=== PATIENT | male | born 1955 | race African-American/Black ===

== ENCOUNTER 2018-07-30 06:52 | Emergency (ER) | payer OTHER ==
[~2018-07-30] VITALS: Ht 172.7 cm; Wt 95.3 kg
[~2018-07-30 06:52] MED LIST: ALEVE220 MG PO; ALLOPURINOL 30300 M2 PO; APAP500 PO; ARIPIPRAZOLE5 MG PO; BISACODYL SUPP10 MG RECTAL; FLONASE 0.05%50 MCG NASAL; GLUCOSAMINE &1 EAC1 PO; HYDROCODONE-APA1 TA1 PO; LITHIUM CARBON150 MG PO; LITHIUM CARBON300 M3 PO; MIRALAX17 GM PO; NEURONTIN 300300 M1 PO; NUEDEXTA 20-101 EACH PO; VITAMINC500 PO
[2018-07-30 07:39] LABS: ABSOLUTE NEUTROPHILS 6.2 thou/uL (1.4-8.2); BASOPHILS 0.8 % (0.0-2.0); EOSINOPHILS 1.2 % (0.0-3.0); HEMATOCRIT 46.9 % (42.0-52.0); HEMOGLOBIN 14.9 gm/dL (14.0-18.0); LYMPHOCYTES 18.4 % (24.0-44.0); MCH 28.6 pg (26.0-34.0); MCHC 31.7 g/dL (28.0-37.0); MCV 90.1 fL (80.0-100.0); MONOCYTES 6.6 % (1.0-8.0); PLATELET COUNT 203 thou/uL (150-400); RBC 5.21 mil/uL (4.50-6.00); RDW 15.7 % (10.5-14.5); WBC 8.4 thou/uL (4.0-11.0)
[2018-07-30 08:08] LABS: ANION GAP 5 mmol/L (7-16); BUN 21 mg/dL (7-18); CALCIUM 10.6 mg/dL (8.5-10.1); CHLORIDE 102 mmol/L (98-107); CO2 29 mmol/L (21-32); CREATININE 1.8 mg/dL (0.7-1.3); GLUCOSE 100 mg/dL (74-106); POTASSIUM 4.3 mmol/L (3.5-5.1); SODIUM 136 mmol/L (136-145)
[2018-07-30 08:18] LABS: ALBUMIN 3.9 g/dL (3.4-5.0); SGOT 16 U/L (15-37); SGPT 24 U/L (30-65); TOTAL BILIRUBIN 0.6 mg/dL (<0.1-1.0); TOTAL PROTEIN 8.1 g/dL (6.4-8.2); TROPONIN-I <0.06 ng/mL (<0.06)
[2018-07-30 08:23] LABS: URINE BILIRUBIN NEGATIVE (Negative); URINE BLOOD NEGATIVE (Negative); URINE CLARITY CLEAR; URINE COLOR YELLOW; URINE GLUCOSE-RANDOM* NEGATIVE (Negative); URINE KETONES NEGATIVE (Negative); URINE LEUKOCYTES-REFLEX NEGATIVE (Negative); URINE NITRITE-REFLEX NEGATIVE (Negative); URINE PROTEIN (DIPSTICK) NEGATIVE (Negative); URINE UROBILINOGEN 0.2 E.U./dl (0.2-1.0)
[2018-07-30] MEDS ORDERED: ASPERCREME76.5 GM TOP (08:37)
[2018-07-30] MEDS ORDERED: ASPIR 8181 MG PO (08:37)
[2018-07-30] MEDS ORDERED: CLOTRIMAZOLE 1%15 G1 TOP (08:38)
[2018-07-30 08:47] VITALS: BP 121/74
--- NOTE | 2018-07-30 09:27 | EKG ---
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 : 1955 Requested By: Sandy Burleson Order Number: [id number] MD: Sekou Frank Measurements Intervals Cooks Rate: 55 P: 86 HI: 222 QRS: 52 QRSD: 123 T: 31 QT: 452 QTc: 433 Interpretive Statements Sinus rhythm Prolonged HI interval Nonspecific ST and T wave abnormality Compared to ECG 10/28/2015 21:35:21 First degree AV block now present Electronically Signed On 07-30-2018 9:26:49 TELEVISION NEWS REPORTER by Sekou Frank [email or web address] ��������������������������������������������� <ELECTRONICALLY SIGNED> ���������������������������������������� By: Sekou Frank MD, [facility] ��������������������������������������������� 07/30/18 0926 D: [id number] Sekou Frank MD, FACC /EPI
== END 2018-07-30 08:50 | disposition home or self-care (01) ==
LOC: ER 06:52
PROVIDERS: Student in an Organized Health Care Education/Training Program
DX: R25.1 Tremor, unspecified (principal); F03.90 Unspecified dementia, unspecified severity, without behavioral disturbance, psychotic disturbance, mood disturbance, and anxiety; F17.210 Nicotine dependence, cigarettes, uncomplicated; F31.9 Bipolar disorder, unspecified; F25.9 Schizoaffective disorder, unspecified

== ENCOUNTER 2020-12-02 23:28 | Emergency (ER) | payer OTHER ==
[~2020-12-02] VITALS: Ht 175.3 cm; Wt 81.7 kg
[~2020-12-02 23:28] MED LIST changes: +ASPERCREME76.5 GM TOP; +ASPIR 8181 MG PO; +CLOTRIMAZOLE 1%15 G1 TOP
[2020-12-02 23:46] LABS: ABSOLUTE NEUTROPHILS 2.2 thou/uL (1.4-8.2); EOSINOPHILS 2.1 % (0.0-3.0); HEMATOCRIT 46.4 % (42.0-52.0); HEMOGLOBIN 15.2 gm/dL (14.0-18.0); LYMPHOCYTES 38.5 % (24.0-44.0); MCH 28.1 pg (26.0-34.0); MCHC 32.8 g/dL (28.0-37.0); MCV 85.5 fL (80.0-100.0); MONOCYTES 6.8 % (1.0-8.0); PLATELET COUNT 193 thou/uL (150-400); POLYS 51.6 % (36.0-66.0); RBC 5.43 mil/uL (4.50-6.00); WBC 4.3 thou/uL (4.0-11.0)
[2020-12-02 23:54] LABS: ANION GAP 9 mmol/L (7-16); BUN 12 mg/dL (7-18); CALCIUM 9.5 mg/dL (8.5-10.1); CHLORIDE 103 mmol/L (98-107); CO2 29 mmol/L (21-32); CREATININE 1.5 mg/dL (0.7-1.3); GLUCOSE 80 mg/dL (74-106); POTASSIUM 4.1 mmol/L (3.5-5.1); SODIUM 141 mmol/L (136-145)
[2020-12-03 00:04] LABS: ALBUMIN 3.5 g/dL (3.4-5.0); LIPASE 265 U/L (73-393); SGOT 21 U/L (15-37); SGPT 18 U/L (30-65); TOTAL BILIRUBIN 0.3 mg/dL (0.2-1.0); TOTAL PROTEIN 7.8 g/dL (6.4-8.2); TROPONIN-I <0.06 ng/mL (<0.06)
[2020-12-03 04:43] VITALS: BP 139/87
--- NOTE | 2020-12-03 07:28 | EKG ---
[place] [place] [address] ELECTROCARDIOGRAM REPORT Name: ANATOLIY GILLIAM III Room #: [facility]#: [id number] Admission: 12/02/20 Attend Phys: Discharge: 12/03/20 Date of : 51 Report #: [id number] [facility] ED Test Date: 2020-12-02 Test Time: 23:35:54 Pat Name: ANATOLIY GILLIAM Department: Room: Gender: M Data Reviewer: : 1955 Requested By: Adria Cabrera Order Number: [id number] MD: Rafael Osorio Measurements Intervals [place]aine Rate: 64 P: 70 MN: 173 QRS: 38 QRSD: 103 T: 53 QT: 416 QTc: 430 Interpretive Statements Sinus rhythm Probable left atrial enlargement Compared to ECG 07/30/2018 07:08:38 First degree AV block no longer present ST (T wave) deviation no longer present Electronically Signed On 12-03-2020 7:28:02 CDT by Rafael Osorio [email or web address] <ELECTRONICALLY SIGNED> By: Rafael Osorio MD, [facility] 12/03/20 0728 34 Rafael Osorio MD, FACC /EPI
== END 2020-12-03 04:44 | disposition home or self-care (01) ==
LOC: ER 23:28
PROVIDERS: Emergency Medicine
DX: R07.89 Other chest pain (principal); R07.2 Precordial pain; F17.210 Nicotine dependence, cigarettes, uncomplicated; Z88.8 Allergy status to other drugs, medicaments and biological substances; Z79.82 Long term (current) use of aspirin; Z79.899 Other long term (current) drug therapy

== ENCOUNTER 2020-12-10 21:06 | Emergency (ER) | payer OTHER ==
[~2020-12-10] VITALS: Ht 170.2 cm; Wt 74.8 kg
[2020-12-10] MEDS ORDERED: MOBIC7.5 MG PO (23:04)
[2020-12-11] MEDS ORDERED: AMOXICILLIN875 MG PO (00:40)
[2020-12-11 00:56] VITALS: BP 145/83
== END 2020-12-11 00:59 | disposition home or self-care (01) ==
LOC: ER 21:06
DX: R68.84 Jaw pain (principal); J32.9 Chronic sinusitis, unspecified; K08.89 Other specified disorders of teeth and supporting structures; F31.9 Bipolar disorder, unspecified; F25.9 Schizoaffective disorder, unspecified; F17.210 Nicotine dependence, cigarettes, uncomplicated; Z79.899 Other long term (current) drug therapy; Z79.82 Long term (current) use of aspirin; Z88.8 Allergy status to other drugs, medicaments and biological substances

== ENCOUNTER 2021-01-16 19:52 | Inpatient (IN) | payer OTHER ==
[~2021-01-16] VITALS: Ht 170.2 cm; Wt 87.1 kg
--- NOTE | ~2021-01-16 | O ---
[facility] [place] [address] OPERATIVE REPORT Name: ANATOLIY GILLIAM III Room #: 459-P [facility] M.R.#: [id number] Admission: 01/16/21 Attend Phys: Harvey Dalton, Discharge: Date of : 51 Report #: [id number] THIS REPORT FOR: cc: [facility] - Clinic physician unknown [facility] - Clinic physician unknown Harvey Dalton MD ~ DATE OF SERVICE: 01/17/2021 PREOPERATIVE DIAGNOSIS: Rectal foreign body. POSTOPERATIVE DIAGNOSIS: Rectal foreign body. OPERATIONS: 1. Rectal exam under anesthesia. 2. Removal of rectal foreign body. SURGEON: Harvey Dalton M.D. ANESTHESIA: General. ESTIMATED BLOOD LOSS: Minimal. SPECIMENS: Rectal foreign body. DESCRIPTION OF PROCEDURE: After informed consent was obtained, the patient was brought to the operating room and placed supine. SCDs were placed and working, preoperative antibiotics were not administered, general anesthesia was induced. The patient was placed in the lithotomy position. The area was then prepped and draped in the usual sterile fashion. Digital rectal exam was performed. This demonstrated an approximately 15 cm long handle of a barbecue skillet handle. This was removed. Anoscopy was performed and this did not demonstrate any other trauma. The rectal foreign body was then sent off as a specimen per the hospital guidelines. The patient was then awakened from anesthesia. COMPLICATIONS: None. DISPOSITION: The patient was taken to recovery in satisfactory condition. By: 1155 [id number] Harvey Dalton MD /jones
[~2021-01-16 19:52] MED LIST changes: +AMOXICILLIN875 MG PO; +MOBIC7.5 MG PO
[2021-01-16 19:53] VITALS: BP 150/91
[2021-01-16 20:57] LABS: ABSOLUTE NEUTROPHILS 3.8 thou/uL (1.4-8.2); BASOPHILS 0.5 % (0.0-2.0); EOSINOPHILS 0.3 % (0.0-3.0); HEMATOCRIT 44.7 % (42.0-52.0); LYMPHOCYTES 26.2 % (24.0-44.0); MCH 28.3 pg (26.0-34.0); MCHC 33.6 g/dL (28.0-37.0); MCV 84.2 fL (80.0-100.0); MONOCYTES 6.8 % (1.0-8.0); PLATELET COUNT 190 thou/uL (150-400); POLYS 66.2 % (36.0-66.0); RBC 5.31 mil/uL (4.50-6.00); RDW 16.2 % (10.5-14.5); WBC 5.7 thou/uL (4.0-11.0)
[2021-01-16 21:02] LABS: CALCIUM 9.2 mg/dL (8.5-10.1); CREATININE 1.4 mg/dL (0.7-1.3); POTASSIUM 4.4 mmol/L (3.5-5.1)
[2021-01-16 21:55] VITALS: BP 150/91
[2021-01-16 22:47] VITALS: BP 124/90
[2021-01-16 23:30] VITALS: BP 134/96
--- NOTE | 2021-01-17 02:59 | NUR ---
PT ADMITTED TO THE UNIT WITH C/O OF FOREIGN DESCRIBED BBQ BRUSH STUCK IN THE RECTUN FEW REMAINING MENTAL WIRES IN RECTAL TISSUES.PT UNABLE TO GIVE A GOOD HISTORY OF WHAT HAPPENED .PT IS A/O X4.PT C/O OF TINGLING BLE.PT DENIED ABDOMINAL PAIN,NAUSEA AND VOMITING.PT NPO FROM MIDNIGHT .PT IS ON ROOM AIR.IV ACCCESS ON RFA SL.PT USES A URINAL TO VOID.WILL CONTINUE TO MONITOR
[2021-01-17 08:52] VITALS: BP 96/55
[2021-01-17 13:39] VITALS: BP 128/75
[2021-01-17 14:09] VITALS: BP 122/85
--- NOTE | 2021-01-17 14:48 | NUR ---
Pt AXOX4 sitting up in chair. Starting getting mad about 10:00 AM stating he was going to leave AMA. I explained we were waiting on a OR. At 12:00 they took him down and removed object object found out to be a door handle. Pt ate lunch and rested. Then was discharged IV dced. No c/o pain or distress noted.
[2021-01-17 14:54] VITALS: BP 122/85
--- NOTE | 2021-01-19 18:06 | PATH ---
[facility] [address] [place] [address] PATHOLOGY RPT PROCEDURE Name: ANATOLIY PIZARRO III Room #: 459-P [facility] IN ..#: [id number] Admission: 01/16/21 Date of : 51 Discharge: 01/17/21 Report #: [id number] Path Case #: [id number] [facility] Accession Number: [id number] . 01 Material submitted: . body - FOREIGN BODY . 01 Clinical history: . HEMORRHOIDECTOMY . 02 Diagnosis: Foreign object in rectum, removal: - 16.9 cm metallic object (gross exam only). (IUV:dann; 01/19/2021) QMS 01/19/2021 1358 Local . 02 Electronically signed: . Chacha Yeager MD, Pathologist NPI- [id number] . 01 Gross description: . The specimen is received fresh designated "Anatoliy Pizarro III" and without a specimen ID, however the demographic sheet designates the specimen as "foreign object in rectum". The specimen consists of a silver metallic ovoid-shaped foreign body (16.9 x 3.5 x 2.0 cm) with red, rubbery, flat ends and red rubbery detailing. Extending from one end are 2 silver metallic irregular portions of thin metal (1.5 x 0.5 x 0.1 cm and 1.4 x 0.4 x 0.1 cm). No inscriptions are identified. The specimen is for gross examination only. Gross photographs are taken. ([place]; 01/18/2021) DKA/DKA 01/18/2021 1128 Local . 02 Pathologist provided ICD-10: Z03.89 . 02 CPT . 239229 Specimen Comment: A courtesy copy of this report has been sent to [phone] Specimen Comment: Report sent to Performed at: 01 [facility] [address] [place] [address] [address], [place], [place] [id number] MD García Booth MD Phone: [phone] Performed at: [address] [id number] MD Chacha Yeager MD Phone: [phone]
== END 2021-01-17 15:51 | disposition home or self-care (01) | DRG 395 ==
LOC: ER 19:52 → EROBS 20:54 → 4W 23:06
PROVIDERS: Nurse Practitioner; ADMIT Surgery; ATTEND Surgery
DX: T18.5XXA Foreign body in anus and rectum, initial encounter (principal); X58.XXXA Exposure to other specified factors, initial encounter; F10.20 Alcohol dependence, uncomplicated; F17.210 Nicotine dependence, cigarettes, uncomplicated; F03.90 Unspecified dementia, unspecified severity, without behavioral disturbance, psychotic disturbance, mood disturbance, and anxiety; F31.9 Bipolar disorder, unspecified; Z20.822 Contact with and (suspected) exposure to COVID-19; Y93.89 Activity, other specified; Y92.89 Other specified places as the place of occurrence of the external cause; Y99.8 Other external cause status; Z79.82 Long term (current) use of aspirin; Z79.899 Other long term (current) drug therapy; Z88.8 Allergy status to other drugs, medicaments and biological substances
CPT/HCPCS: 10040; 50101; 50400; 62110; 62900; 70005